=== PATIENT | male | born 1995 | race Caucasian/White ===

== ENCOUNTER 2018-12-25 21:46 | Emergency (ER) | payer OTHER ==
[~2018-12-25] VITALS: Ht 177.8 cm; Wt 83.3 kg
--- NOTE | 2018-12-25 21:50 | ED.ADGEN ---
Past History Past Medical History: GERD Adult General Chief Complaint Chief Complaint ".. I ve got really bad.. abdomen.. epigastric pain.. 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 Pain is localized in the epigastric and right upper quadrant. Pain radiates up into the chest and associated with bad taste in his mouth. Patient does have a history of previous GERD complaints. Patient denies any trauma. There is some radiation of pain Right shoulder. No history of trauma. Patient is physically active. No recent overseas travel. No specific ill contacts. No history of intake bad food. Pain does exacerbate with high fat meals. History of colitis with him or family members. No history of immunosuppression. Review of Systems Review of Systems Constitutional: Denies fever or chills [] Eyes: Denies change in visual acuity, redness, or eye pain [] HENT: Denies nasal congestion or sore throat [] Respiratory: Denies cough or shortness of breath [] Cardiovascular: No additional information not addressed in HPI [] GI: Complains of right upper quadrant and epigastric abdominal pain, nausea, . Denies Vomiting, bloody stools or diarrhea [] : Denies dysuria or hematuria [] Musculoskeletal: Denies back pain or joint pain [] Integument: Denies rash or skin lesions [] Neurologic: Denies headache, focal weakness or sensory changes [] Endocrine: Denies polyuria or polydipsia [] All other systems were reviewed and found to be within normal limits, except as documented in this note. Family History Family History Non-contributory Current Medications Current Medications Current Medications Medications (Trade) Dose Ordered Sig/Ronen Start Time Stop Time Status Last Admin Dose Admin Famotidine (Pepcid Vial) 20 mg 1X ONCE 12/25/18 22:15 12/25/18 22:16 DC 12/25/18 22:35 20 MG Folic Acid (FOLIC ACID SYRINGE for ER) 5 mg STK-MED ONCE 12/26/18 00:44 12/26/18 00:45 DC Info (Do NOT chart on this entry -- for MONITORING) 1 each PRN DAILY PRN 12/25/18 23:55 12/27/18 23:54 Iohexol (Omnipaque 240 Mg/ml) 30 ml 1X ONCE 12/25/18 23:55 12/25/18 23:56 DC 12/26/18 01:04 30 ML Iohexol (Omnipaque 300 Mg/ml) 75 ml 1X ONCE 12/25/18 23:55 12/25/18 23:56 DC 12/26/18 01:04 75 ML Lactated Ringer's 1,000 ml @ 1,000 mls/hr Q1H 12/25/18 22:00 12/25/18 22:59 DC 12/25/18 22:32 1,000 MLS/HR Magnesium Hydroxide (Milk Of Magnesia) 2,400 mg 1X ONCE 12/25/18 22:15 12/25/18 22:16 DC 12/25/18 22:35 2,400 MG Multivitamins/ Minerals (Infuvite Adult) 10 ml STK-MED ONCE 12/26/18 00:44 12/26/18 00:45 DC Multivitamins/ Minerals 10 ml/ Folic Acid 1 mg/ Thiamine HCl 100 mg/Lactated Ringer's 1,011.2 ml @ 1,011.2 mls/hr 1X ONCE 12/25/18 23:45 12/26/18 00:44 DC 12/26/18 00:59 1,011.2 MLS/HR Ondansetron HCl (Zofran) 8 mg 1X ONCE 12/25/18 22:15 12/25/18 22:16 DC 12/25/18 22:36 8 MG Thiamine HCl (Thiamine Vial) 200 mg STK-MED ONCE 12/26/18 00:44 12/26/18 00:45 DC Allergies Allergies Allergies Coded Allergies Type Severity Reaction Last Updated Verified No Known Drug Allergies 12/25/18 No Physical Exam Physical Exam Constitutional: Well developed, well nourished, in moderate acute distress, non- toxic appearance. [] HENT: Normocephalic, atraumatic, bilateral external ears normal, oropharynx moist, no oral exudates, nose normal. [] Eyes: PERRLA, EOMI, conjunctiva normal, no discharge. [] Neck: Normal range of motion, no tenderness, supple, no stridor. [] Cardiovascular:Tachycardia Heart rate regular rhythm, no murmur [] Lungs & Thorax: Bilateral breath sounds equal at apexes on auscultation [] Abdomen: Bowel sounds normal, soft, epigastric and rt. upper quadrant tenderness, no masses, no pulsatile masses. [] Pt. declines rectal at this time. Skin: Warm, dry, no erythema, no rash. [] Back: No tenderness, no CVA tenderness. [] Extremities: No tenderness, no cyanosis, no clubbing, ROM intact, no edema. [] Neurologic: Alert and oriented X 3, normal motor function, normal sensory function, no focal deficits noted. []No cording noted. Psychologic: Affect anxious, judgement normal, mood normal. [] Current Patient Data Vital Signs Vital Signs Date Time Temp Pulse Resp B/P (MAP) Pulse Ox O2 Delivery O2 Flow Rate FiO2 12/25/18 21:50 98.7 100 20 95 Room Air Lab Results Laboratory Tests Test 12/25/18 21:55 12/25/18 22:09 12/25/18 22:30 12/26/18 02:40 Urine Collection Type Unknown Urine Color Yellow Urine Clarity Hazy Urine pH 5.5 Urine Specific [place] <=1.005 Urine Protein Neg (NEG-TRACE) Urine Glucose (UA) Neg mg/dL (NEG) Urine Ketones (Stick) Neg mg/dL (NEG) Urine Blood Trace (NEG) Urine Nitrite Neg (NEG) Urine Bilirubin Neg (NEG) Urine Urobilinogen Dipstick 0.2 mg/dL (0.2 mg/dL) Urine Leukocyte Esterase Neg (NEG) Urine RBC 0 /HPF (0-2) Urine WBC 0 /HPF (0-4) Urine Squamous Epithelial Cells Occ /LPF Urine Bacteria 0 /HPF (0-FEW) Urine Opiates Screen Neg (NEG) Urine Methadone Screen Neg (NEG) Urine Barbiturates Neg (NEG) Urine Phencyclidine Screen Neg (NEG) Urine Amphetamine/Methamphetamine Neg (NEG) Urine Benzodiazepines Screen Neg (NEG) Urine Cocaine Screen Neg (NEG) Urine Cannabinoids Screen Neg (NEG) Urine Ethyl Alcohol Pos (NEG) White Blood Count 7.0 x10^3/uL (4.0-11.0) Red Blood Count 4.31 x10^6/uL (4.30-5.70) Hemoglobin 15.0 g/dL (13.0-17.5) Hematocrit 42.7 % (39.0-53.0) Mean Corpuscular Volume 99 fL (79-100) Mean Corpuscular Hemoglobin 35 pg (25-35) Mean Corpuscular Hemoglobin Concent 35 g/dL (31-37) Red Cell Distribution Width 13.0 % (11.5-14.5) Platelet Count 253 x10^3/uL (140-400) Neutrophils (%) (Auto) 61 % (31-73) Lymphocytes (%) (Auto) 31 % (24-48) Monocytes (%) (Auto) 6 % (0-9) Eosinophils (%) (Auto) 1 % (0-3) Basophils (%) (Auto) 1 % (0-3) Neutrophils # (Auto) 4.3 x10^3uL (1.8-7.7) Lymphocytes # (Auto) 2.2 x10^3/uL (1.0-4.8) Monocytes # (Auto) 0.4 x10^3/uL (0.0-1.1) Eosinophils # (Auto) 0.1 x10^3/uL (0.0-0.7) Basophils # (Auto) 0.0 x10^3/uL (0.0-0.2) Prothrombin Time 11.0 SEC (9.4-11.4) Prothrombin Time INR 1.1 (0.9-1.1) PTT 24 SEC (23-33) Sodium Level 140 mmol/L (136-145) Potassium Level 4.2 mmol/L (3.5-5.1) Chloride Level 103 mmol/L (98-107) Carbon Dioxide Level 23 mmol/L (21-32) Anion Gap 14 (6-14) Blood Urea Nitrogen 12 mg/dL (8-26) Creatinine 1.0 mg/dL (0.7-1.3) Estimated GFR (Cockcroft-Gault) 91.0 Glucose Level 100 mg/dL (70-99) H Calcium Level 8.4 mg/dL (8.5-10.1) L Total Bilirubin 1.1 mg/dL (0.2-1.0) H Direct Bilirubin 0.2 mg/dL (0.0-0.2) Aspartate Amino Transferase (AST) 16 U/L (15-37) Alanine Aminotransferase (ALT) 26 U/L (16-63) Alkaline Phosphatase 93 U/L (46-116) Creatine Kinase 103 U/L (39-308) Troponin I Quantitative < 0.017 ng/mL (0-0.055) < 0.017 ng/mL (0-0.055) Total Protein 7.4 g/dL (6.4-8.2) Albumin 4.1 g/dL (3.4-5.0) Amylase Level 47 U/L (25-115) Lipase 130 U/L (73-393) Ethyl Alcohol Level 49 mg/dL (0-10) H EKG EKG My interpretation of EKG shows a sinus rhythm at 98 bpm. There is some bimodal P-wave. There is a small right bundle block. No acute interval change on repeat EKG. Has a sinus rhythm at 82. Left atrial bimodal waves. Incomplete right bundle branch block. No findings acute STEMI Radiology/Procedures Radiology/Procedures [][address] [address] IMAGING REPORT Signed PATIENT: TATI WELLS ACCOUNT: [id number] : 1995 LOCATION: ER AGE: 23 SEX: M EXAM STATUS: REG ER ORD. PHYSICIAN: JEISON LOZANO MD REASON: Omni 300,75ml IV.Omni 240,30ml PO. Abd Pain, vomiting PROCEDURE: CT ABD PELV W/ORAL&IV CONTRAST EXAM: CT Abdomen and Pelvis with IV contrast CLINICAL HISTORY: Abdominal pain. COMPARISON: none TECHNIQUE: Helical CT of the abdomen and pelvis was performed following the administration of intravenous contrast. Axial, coronal and sagittal reformatted images were generated. PQRS compliance statement - One or more of the following individualized dose reduction techniques were utilized for this study: 1. Automated exposure control 2. Adjustment of the mA and/or kV according to patient size 3. Use of iterative reconstruction technique FINDINGS: Lower chest: Lung bases are clear Abdomen and Pelvis: No focal liver lesion. Gallbladder is normal. No biliary ductal dilatation. Pancreas is unremarkable. Spleen is normal in appearance. Adrenal glands are unremarkable. Symmetric nephrograms. No focal renal lesion. No hydronephrosis. No hydroureter. Bladder is grossly unremarkable. Moderate colonic stool content is seen. Appendix is normal. No small or large bowel dilatation. No abdominal pelvic ascites. No abdominal or pelvic lymphadenopathy. Bones: Osseous structures are unremarkable. IMPRESSION: 1. No evidence for bowel obstruction. 2. No abdominal or pelvic ascites. 3. Appendix is normal. Electronically signed by: Leonidas Rao MD (12/26/2018 1:49 AM) [facility] DICTATED AND SIGNED BY: LEONIDAS RAO MD DATE: 12/26/18 0149 CC: JEISON LOZANO MD; PCP,NO ~ Course & Med Decision Making Course & Med Decision Making Pertinent Labs and Imaging studies reviewed. (See chart for details) Patient's stay on a clear fluid diet only for 2 days. No solids or milk products. Avoid alcohol. Allow bowel rest no solids or milk products. Take Zantac and 50 mg twice a day. Follow-up primary care. Concern for biliary colic would obtain an ultrasound to evaluate for biliary colic. Consider EGD for reflux, gastritis and duodenitis. Patient take Carafate 1 g by mouth pre-meal 4 times a day. Must follow-up. Return if any concerns. [] Final Impression Final Impression 1. Abdomen pain[]-suspect biliary colic 2. Elevated Bili 1.1 3. Gastritis 4. ETOH use Dragon Disclaimer Dragon Disclaimer This electronic medical record was generated, in whole or in part, using a voice recognition dictation system. Discharge Summary Visit Information Final Diagnosis Problems Medical Problems: (1) Gastritis and duodenitis Status: Acute (2) Pain in the abdomen Status: Acute Brief Hospital Course Allergies Allergies Coded Allergies Type Severity Reaction Last Updated Verified No Known Drug Allergies 12/25/18 No Vital Signs Vital Signs Date Time Temp Pulse Resp B/P (MAP) Pulse Ox O2 Delivery O2 Flow Rate FiO2 12/25/18 21:50 98.7 100 20 95 Room Air Lab Results Laboratory Tests Test 12/25/18 21:55 12/25/18 22:09 12/25/18 22:30 12/26/18 02:40 Urine Collection Type Unknown Urine Color Yellow Urine Clarity Hazy Urine pH 5.5 Urine Specific [place] <=1.005 Urine Protein Neg (NEG-TRACE) Urine Glucose (UA) Neg mg/dL (NEG) Urine Ketones (Stick) Neg mg/dL (NEG) Urine Blood Trace (NEG) Urine Nitrite Neg (NEG) Urine Bilirubin Neg (NEG) Urine Urobilinogen Dipstick 0.2 mg/dL (0.2 mg/dL) Urine Leukocyte Esterase Neg (NEG) Urine RBC 0 /HPF (0-2) Urine WBC 0 /HPF (0-4) Urine Squamous Epithelial Cells Occ /LPF Urine Bacteria 0 /HPF (0-FEW) Urine Opiates Screen Neg (NEG) Urine Methadone Screen Neg (NEG) Urine Barbiturates Neg (NEG) Urine Phencyclidine Screen Neg (NEG) Urine Amphetamine/Methamphetamine Neg (NEG) Urine Benzodiazepines Screen Neg (NEG) Urine Cocaine Screen Neg (NEG) Urine Cannabinoids Screen Neg (NEG) Urine Ethyl Alcohol Pos (NEG) White Blood Count 7.0 x10^3/uL (4.0-11.0) Red Blood Count 4.31 x10^6/uL (4.30-5.70) Hemoglobin 15.0 g/dL (13.0-17.5) Hematocrit 42.7 % (39.0-53.0) Mean Corpuscular Volume 99 fL (79-100) Mean Corpuscular Hemoglobin 35 pg (25-35) Mean Corpuscular Hemoglobin Concent 35 g/dL (31-37) Red Cell Distribution Width 13.0 % (11.5-14.5) Platelet Count 253 x10^3/uL (140-400) Neutrophils (%) (Auto) 61 % (31-73) Lymphocytes (%) (Auto) 31 % (24-48) Monocytes (%) (Auto) 6 % (0-9) Eosinophils (%) (Auto) 1 % (0-3) Basophils (%) (Auto) 1 % (0-3) Neutrophils # (Auto) 4.3 x10^3uL (1.8-7.7) Lymphocytes # (Auto) 2.2 x10^3/uL (1.0-4.8) Monocytes # (Auto) 0.4 x10^3/uL (0.0-1.1) Eosinophils # (Auto) 0.1 x10^3/uL (0.0-0.7) Basophils # (Auto) 0.0 x10^3/uL (0.0-0.2) Prothrombin Time 11.0 SEC (9.4-11.4) Prothromb Time International Ratio 1.1 (0.9-1.1) Activated Partial Thromboplast Time 24 SEC (23-33) Sodium Level 140 mmol/L (136-145) Potassium Level 4.2 mmol/L (3.5-5.1) Chloride Level 103 mmol/L (98-107) Carbon Dioxide Level 23 mmol/L (21-32) Anion Gap 14 (6-14) Blood Urea Nitrogen 12 mg/dL (8-26) Creatinine 1.0 mg/dL (0.7-1.3) Estimated GFR (Cockcroft-Gault) 91.0 Glucose Level 100 mg/dL (70-99) Calcium Level 8.4 mg/dL (8.5-10.1) Total Bilirubin 1.1 mg/dL (0.2-1.0) Direct Bilirubin 0.2 mg/dL (0.0-0.2) Aspartate Amino Transf (AST/SGOT) 16 U/L (15-37) Alanine Aminotransferase (ALT/SGPT) 26 U/L (16-63) Alkaline Phosphatase 93 U/L (46-116) Creatine Kinase 103 U/L (39-308) Troponin I Quantitative < 0.017 ng/mL (0-0.055) < 0.017 ng/mL (0-0.055) Total Protein 7.4 g/dL (6.4-8.2) Albumin 4.1 g/dL (3.4-5.0) Amylase Level 47 U/L (25-115) Lipase 130 U/L (73-393) Ethyl Alcohol Level 49 mg/dL (0-10) Brief Hospital Course 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 Suspect biliary colic Discharge Information Condition at Discharge: Improved, Stable Disposition/Orders: D/C to Home Dischare Medications Current Medications Lactated Ringer's 1,000 ml @ 1,000 mls/hr Q1H IV Last administered on 12/25/18at 22:32; Admin Dose 1,000 MLS/HR; Start 12/25/18 at 22:00; Stop 12/25/18 at 22:59; Status DC Ondansetron HCl (Zofran) 8 mg 1X ONCE IV Last administered on 12/25/18at 22:36; Admin Dose 8 MG; Start 12/25/18 at 22:15; Stop 12/25/18 at 22:16; Status DC Famotidine (Pepcid Vial) 20 mg 1X ONCE IVP Last administered on 12/25/18at 22:35; Admin Dose 20 MG; Start 12/25/18 at 22:15; Stop 12/25/18 at 22:16; Status DC Magnesium Hydroxide (Milk Of Magnesia) 2,400 mg 1X ONCE PO Last administered on 12/25/18at 22:35; Admin Dose 2,400 MG; Start 12/25/18 at 22:15; Stop 12/25/18 at 22:16; Status DC Multivitamins/ Minerals 10 ml/ Folic Acid 1 mg/ Thiamine HCl 100 mg/Lactated Ringer's 1,011.2 ml @ 1,011.2 mls/hr 1X ONCE IV Last administered on 12/26/18at 00:59; Admin Dose 1,011.2 MLS/HR; Start 12/25/18 at 23:45; Stop 12/26/18 at 00:44; Status DC Iohexol (Omnipaque 240 Mg/ml) 30 ml 1X ONCE PO Last administered on 12/26/18at 01:04; Admin Dose 30 ML; Start 12/25/18 at 23:55; Stop 12/25/18 at 23:56; Status DC Iohexol (Omnipaque 300 Mg/ml) 75 ml 1X ONCE IV Last administered on 12/26/18at 01:04; Admin Dose 75 ML; Start 12/25/18 at 23:55; Stop 12/25/18 at 23:56; Status DC Info (Do NOT chart on this entry -- for MONITORING) 1 each PRN DAILY PRN MC SEE COMMENTS; Start 12/25/18 at 23:55; Stop 12/27/18 at 23:54 Thiamine HCl (Thiamine Vial) 200 mg STK-MED ONCE IV ; Start 12/26/18 at 00:44; Stop 12/26/18 at 00:45; Status DC Multivitamins/ Minerals (Infuvite Adult) 10 ml STK-MED ONCE IV ; Start 12/26/18 at 00:44; Stop 12/26/18 at 00:45; Status DC Folic Acid (FOLIC ACID SYRINGE for ER) 5 mg STK-MED ONCE IV ; Start 12/26/18 at 00:44; Stop 12/26/18 at 00:45; Status DC Active Scripts Active Acetaminophen 500 Mg Tablet 1,000 Mg PO QIDPRN PRN Carafate (Sucralfate) 1 Gm/10 Ml Oral.susp 1 Gm PO QID Zantac (Ranitidine Hcl) 150 Mg Tablet 150 Mg PO BID 30 Days Aj Disclaimer This chart was dictated in whole or in part using Voice Recognition software in a busy, high-work load, and often noisy Emergency Department environment. It may contain unintended and wholly unrecognized errors or omissions. JEISON LOZANO MD Dec 25, 2018 21:50
[2018-12-25] MEDS ORDERED: IV RINGERS SOLUTION,LACTATED 1,000 ML IV SCH (22:00)
[2018-12-25] MEDS ORDERED: FAMOTIDINE 20 MG/2 ML VIAL IVP ONE (22:15)
[2018-12-25] MEDS ORDERED: ONDANSETRON PF 4 MG/2 ML VIAL. IV ONE (22:15)
[2018-12-25] MEDS ORDERED: MAGNESIUM HYDROXIDE 2,400 MG/30 ML ORAL.SUSP. PO ONE (22:15)
[2018-12-25 22:18] LABS: BACTERIA,URINE 0 /HPF (0-FEW); BILIRUBIN,URINE NEG (NEG); CLARITY,URINE HAZY; COLOR,URINE YELLOW; GLUCOSE,URINE NEG (NEG); NITRITE,URINE NEG (NEG); RBC,URINE 0 /HPF (0-2); SQUAMOUS EPITHELIAL CELL,UR OCC /LPF; UROBILINOGEN,URINE 0.2 mg/dL (0.2 mg/dL); WBC,URINE 0 /HPF (0-4)
[2018-12-25 22:23] LABS: AMPHETAMINE/METHAMPHETAMINE NEG (NEG); BARBITURATES NEG (NEG); BENZODIAZEPINES NEG (NEG); CANNABINOIDS NEG (NEG); COCAINE NEG (NEG); METHADONE NEG (NEG); OPIATES NEG (NEG); PHENCYCLIDINE NEG (NEG)
[2018-12-25 22:29] LABS: BASO % 1 % (0-3); EOS # 0.1 x10^3/uL (0.0-0.7); EOS % 1 % (0-3); HEMATOCRIT 42.7 % (39.0-53.0); LYMPH # 2.2 x10^3/uL (1.0-4.8); LYMPH % 31 % (24-48); MEAN CORPUSCULAR HEMOGLOBIN 35 pg (25-35); MEAN CORPUSCULAR HGB CONC 35 g/dL (31-37); MEAN CORPUSCULAR VOLUME 99 fL (79-100); MONO # 0.4 x10^3/uL (0.0-1.1); MONO % 6 % (0-9); NEUT # 4.3 x10^3uL (1.8-7.7); NEUT % 61 % (31-73); PLATELET COUNT 253 x10^3/uL (140-400); RED BLOOD COUNT 4.31 x10^6/uL (4.30-5.70)
[2018-12-25 22:44] LABS: ALBUMIN 4.1 g/dL (3.4-5.0); CALCIUM 8.4 mg/dL (8.5-10.1); DIRECT BILIRUBIN 0.2 mg/dL (0.0-0.2); TOTAL BILIRUBIN 1.1 mg/dL (0.2-1.0); TOTAL PROTEIN 7.4 g/dL (6.4-8.2)
[2018-12-25 23:24] LABS: POTASSIUM 4.2 mmol/L (3.5-5.1)
[2018-12-25] MEDS ORDERED: MVI, ADULT NO.4 WITH VIT K 10 ML, FOLIC ACID SYRINGE for ER 1 MG, THIAMINE INJ 100 MG i... IV ONE ×4 (23:45)
[2018-12-25] MEDS ORDERED: IOHEXOL 300 MG/ML 75 ML VIAL. IV ONE (23:55)
[2018-12-25] MEDS ORDERED: CONTRAST GIVEN MC PRN (23:55)
[2018-12-25] MEDS ORDERED: IOHEXOL 240 MG/ML 50ML VIAL. PO ONE (23:55)
[2018-12-26] MEDS ORDERED: FOLIC ACID 5 MG/ML SYRINGE for ER IV ONE (00:44)
[2018-12-26] MEDS ORDERED: THIAMINE 200 MG/2 ML VIAL. IV ONE (00:44)
[2018-12-26] MEDS ORDERED: MVI, ADULT NO.4 WITH VIT K 10 ML VIAL IV ONE (00:44)
--- NOTE | 2018-12-26 01:52 | RAD ---
EXAM: CT Abdomen and Pelvis with IV contrast CLINICAL HISTORY: Abdominal pain. COMPARISON: none TECHNIQUE: Helical CT of the abdomen and pelvis was performed following the administration of intravenous contrast. Axial, coronal and sagittal reformatted images were generated. PQRS compliance statement - One or more of the following individualized dose reduction techniques were utilized for this study: 1. Automated exposure control 2. Adjustment of the mA and/or kV according to patient size 3. Use of iterative reconstruction technique FINDINGS: Lower chest: Lung bases are clear Abdomen and Pelvis: No focal liver lesion. Gallbladder is normal. No biliary ductal dilatation. Pancreas is unremarkable. Spleen is normal in appearance. Adrenal glands are unremarkable. Symmetric nephrograms. No focal renal lesion. No hydronephrosis. No hydroureter. Bladder is grossly unremarkable. Moderate colonic stool content is seen. Appendix is normal. No small or large bowel dilatation. No abdominal pelvic ascites. No abdominal or pelvic lymphadenopathy. Bones: Osseous structures are unremarkable. IMPRESSION: 1. No evidence for bowel obstruction. 2. No abdominal or pelvic ascites. 3. Appendix is normal. Electronically signed by: Leonidas Van MD (12/26/2018 1:49 AM) [facility]
[2018-12-26] MEDS ORDERED: RANI-376 PO (02:52)
[2018-12-26] MEDS ORDERED: SUCR1ORA5 PO (02:54)
[2018-12-26] MEDS ORDERED: ACET500T68 PO (02:54)
[2018-12-26 03:15] VITALS: BP 124/68
--- NOTE | 2018-12-26 06:28 | EKG ---
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
--- NOTE | 2018-12-26 06:30 | EKG ---
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
--- NOTE | 2018-12-26 08:15 | RAD ---
ACUTE ABDOMEN SERIES Indication: Chest and abdominal pain with vomiting Date of service: 12/17/2018 .Comparison: None available Procedure: PA chest and upright and supine abdomen views are obtained. Findings: Chest: Cardiac size and pulmonary vessels are normal. Pneumonia, pneumothorax or pleural effusion are not present. Bones are normal. Abdomen: No evidence of free air is present. Gas pattern is normal . Impression: Normal Chest . Normal abdomen without obstruction, ileus or free air . If indicated, CT scan of the abdomen would be useful for further evaluation. Electronically signed by: Laxmi Hanks MD (12/26/2018 8:11 AM) [facility]
== END 2018-12-26 03:46 | disposition home or self-care (01) ==
LOC: ER 21:46
DX: K29.70 Gastritis, unspecified, without bleeding (principal); K29.80 Duodenitis without bleeding; F10.10 Alcohol abuse, uncomplicated; E80.7 Disorder of bilirubin metabolism, unspecified; K21.9 Gastro-esophageal reflux disease without esophagitis; Y90.2 Blood alcohol level of 40-59 mg/100 ml
CPT/HCPCS: 36415; 74022; 74177; 80048; 80076; 80307; 81001; 82150; 82550; 83690; 84484; 85025; 85610; 85730; 93005; 96361; 96365; 96375; 99285; G0480; J2405; J3490; J7120; Q9966; Q9967